=== PATIENT | female | born 1990 | race Caucasian/White ===

== ENCOUNTER 2016-10-29 13:52 | Emergency (ER) | payer SELFPAY ==
[~2016-10-29] VITALS: Ht 162.6 cm; Wt 54.0 kg
[2016-10-29 14:17] VITALS: BP 118/81
== END 2016-10-29 19:00 | disposition left against medical advice (07) ==
LOC: ER 13:53
DX: E86.0 Dehydration (principal); Z53.21 Procedure and treatment not carried out due to patient leaving prior to being seen by health care provider